=== PATIENT | female | born 1955 | race Caucasian/White ===

== ENCOUNTER 2020-05-15 08:00 | Day surgery (SDC) | payer MEDICARE, BC ==
[~2020-05-15 08:00] MED LIST: Lactated Ringers 1,000 ML IV SCH; Sodium Chloride 0.9% 10 ML SDV IV PRN; Sodium Chloride 0.9% 10 ML Syringe FLUSH PRN; Sodium Chloride 0.9% 2.5 ML Syringe FLUSH PRN; ceFAZolin 1 GM Vial IV ONE
[2020-05-15] MEDS ORDERED: Ondansetron 4 MG/2 ML SDV ONE (08:37)
[2020-05-15] MEDS ORDERED: Rocuronium Bromide 50 MG/5 ML Syringe ONE (08:37)
[2020-05-15] MEDS ORDERED: Midazolam 1 MG/ML 2 ML SDV ONE (08:37)
[2020-05-15] MEDS ORDERED: fentaNYL 100 MCG/2 ML SDV ONE (08:37)
[2020-05-15] MEDS ORDERED: Propofol 200 MG/20 ML SDV ONE (08:37)
[2020-05-15] MEDS ORDERED: ePHEDrine 50 MG/ML SDV ONE (08:40)
--- NOTE | 2020-05-15 09:10 | PCM.PREANE ---
Preanesthetic Assessment - Anesthesia/Transfusion/Family Hx Anesthesia History: Prior Anesthesia Without Reaction Family History of Anesthesia Reaction: No Transfusion History: No Prior Transfusion(s) Intubation History: Unknown - Review of Systems General: No Symptoms Pulmonary: No Symptoms Cardiovascular: No Symptoms Gastrointestinal: No Symptoms Neurological: No Symptoms Other: Reports: None - Physical Assessment Vital Signs: Last Vital Signs Temp 36.7 C 05/15/20 08:08 Pulse 92 05/15/20 08:08 Resp 16 05/15/20 08:08 BP 149/87 H 05/15/20 08:08 Pulse Ox 100 05/15/20 08:08 Height: 5 ft 4 in Weight: 56.699 kg ASA Class: 2 Mental Status: Alert & Oriented x3 Airway Class: Mallampati = 1 Dentition: Reports: Normal Dentition Thyro-Mental Finger Breadths: 3 Mouth Opening Finger Breadths: 3 ROM/Head Extension: Full Lungs: Clear to Auscultation, Normal Respiratory Effort Cardiovascular: Regular Rate, Regular Rhythm - Lab Values: Laboratory Last Values SARS-CoV-2 (PCR) NOT DETECTED (NOT DETECT) 05/12/20 11:24 - Allergies Allergies/Adverse Reactions: Allergies Allergy/AdvReac Type Severity Reaction Status Date / Time Sulfa (Sulfonamide Allergy Rash Verified 10/23/15 10:03 Antibiotics) - Blood Blood Available: No - Anesthesia Plan Pre-Op Medication Ordered: None - Acknowledgements Anesthesia Type Planned: General Anesthesia Pt an Appropriate Candidate for the Planned Anesthesia: Yes Alternatives and Risks of Anesthesia Discussed w Pt/Guardian: Yes Pt/Guardian Understands and Agrees with Anesthesia Plan: Yes PreAnesthesia Questionnaire HEENT History: Reports: Impaired Vision Other HEENT History: wears glasses Cardiovascular History: Reports: None Respiratory History: Reports: Other (See Below) (lung nodule found accidently on CT scan a month ago- looks benign) Gastrointestinal History: Reports: None Genitourinary History: Reports: Renal Calculus ICE [employer] V[employer] V[employer]OR History: Reports: None Musculoskeletal History: Reports: Other (See Below) Other Musculoskeletal History: Osteopenia Neurological History: Reports: Other (See Below) Other Neuro History: has motion sickness Psychiatric History: Reports: None Endocrine/Metabolic History: Reports: None Hematologic History: Reports: None Immunologic History: Reports: None Oncologic (Cancer) History: Reports: None Dermatologic History: Reports: None - Infectious Disease History Infectious Disease History: Reports: Chicken Pox, Measles, Mumps Other Infectious Disease History: when a child - Past Surgical History Head Surgeries/Procedures: Reports: None HEENT Surgical History: Reports: Tonsillectomy Cardiovascular Surgical History: Reports: None Respiratory Surgical History: Reports: None GI Surgical History: Reports: Colonoscopy Female Surgical History: Reports: None Endocrine Surgical History: Reports: None Neurological Surgical History: Reports: None Musculoskeletal Surgical History: Reports: None Oncologic Surgical History: Reports: None Dermatological Surgical History: Reports: None - SUBSTANCE USE Tobacco Use Status *Q: Never Tobacco User - HOME MEDS Home Medications: Home Meds Sertraline HCl 1 tab PO DAILY 10/23/15 [History] Calcium Carb, Citrate/Vit D3 [Calcium + D3 ER Tablet] 2 tab PO BEDTIME 05/09/20 [History] - CURRENT (IN HOUSE) MEDS Current Meds: Current Medications Lactated Ringer's (Ringers, Lactated) 1,000 mls @ 100 mls/hr IV ASDIRECTED LANDY Last Admin: 05/15/20 08:20 Dose: 100 mls/hr Documented by: Sodium Chloride (Saline Flush) 10 ml FLUSH ASDIRECTED PRN PRN Reason: Keep Vein Open Sodium Chloride (Saline Flush) 2.5 ml FLUSH ASDIRECTED PRN PRN Reason: Keep Vein Open Sodium Chloride (Normal Saline) 10 ml IV ASDIRECTED PRN PRN Reason: IV Use Discontinued Medications Cefazolin Sodium (Ancef) 1 gm IV ONCALL ONE Stop: 05/15/20 00:06 Ephedrine Sulfate (Ephedrine Sulfate) Confirm Administered Dose 50 mg .ROUTE .STK-MED ONE Stop: 05/15/20 08:41 Fentanyl (Sublimaze) Confirm Administered Dose 100 mcg .ROUTE .STK-MED ONE Stop: 05/15/20 08:38 Lidocaine HCl (Xylocaine-Mpf 1%) Confirm Administered Dose 5 ml .ROUTE .STK-MED ONE Stop: 05/15/20 08:38 Midazolam HCl (Versed 1 Mg/Ml) Confirm Administered Dose 2 mg .ROUTE .STK-MED ONE Stop: 05/15/20 08:38 Ondansetron HCl (Zofran) Confirm Administered Dose 4 mg .ROUTE .STK-MED ONE Stop: 05/15/20 08:38 Propofol (Diprivan 20 Ml) Confirm Administered Dose 200 mg .ROUTE .STK-MED ONE Stop: 05/15/20 08:38 Rocuronium [place] (Rocuronium [place]) Confirm Administered Dose 50 mg .ROUTE .STK-MED ONE Stop: 05/15/20 08:38
[2020-05-15] MEDS ORDERED: Iopamidol 408 MG/ML 20 ML SDV ONE (09:39)
[2020-05-15] MEDS ORDERED: Glycopyrrolate 0.2 MG/ML SDV ONE (10:36)
--- NOTE | 2020-05-15 11:19 | PCM.POSTAN ---
POST ANESTHESIA ASSESSMENT - MENTAL STATUS Mental Status: Alert, Oriented - VITAL SIGNS Vital Signs: Last Vital Signs Temp 36.4 C 05/15/20 10:56 Pulse 57 L 05/15/20 11:12 Resp 9 L 05/15/20 11:12 BP 128/70 05/15/20 11:12 Pulse Ox 96 05/15/20 11:12 - RESPIRATORY Respiratory Status: Respiratory Rate WNL, Airway Patent, O2 Saturation Stable - CARDIOVASCULAR CV Status: Pulse Rate WNL, Blood Pressure Stable - GASTROINTESTINAL GI Status: No Symptoms - POST OP HYDRATION Hydration Status: Adequate & Stable - OBSERVATIONS Free Text/Narrative:: The patient tolerated the procedure well. There were no apparent anesthetic complications at this time. Discharge from phase one per criteria.
--- NOTE | 2020-05-15 11:45 | PCM48HPAN ---
Post Anesthesia Note - EVALUATION WITHIN 48HRS OF ANESTHETIC Vital Signs in Normal Range: Yes Patient Participated in Evaluation: Yes Respiratory Function Stable: Yes Airway Patent: Yes Cardiovascular Function Stable: Yes Hydration Status Stable: Yes Pain Control Satisfactory: Yes Nausea and Vomiting Control Satisfactory: Yes Mental Status Recovered: Yes Vital Signs: Last Vital Signs Temp 36 C L 05/15/20 11:16 Pulse 73 05/15/20 11:16 Resp 14 05/15/20 11:16 BP 109/66 05/15/20 11:16 Pulse Ox 96 05/15/20 11:16 - COMMENTS/OBSERVATIONS Free Text/Narrative:: No anesthesia problems
[2020-05-15 11:54] VITALS: BP 102/65; PULSE 59
--- NOTE | 2020-05-15 12:18 | OR ---
SURGEON: Roman Koch M.D. DATE OF PROCEDURE: 05/15/2020 PREOPERATIVE DIAGNOSIS: A 7 mm left renal pelvis stone, lower pole calyceal stone. POSTOPERATIVE DIAGNOSIS: A 7 mm left renal pelvis stone, lower pole calyceal stone. OPERATION: Extracorporeal shock wave lithotripsy. DESCRIPTION OF PROCEDURE: The patient was given general anesthesia. She was on the lithotripsy table. The position of the patient was adjusted, so the stone could be treated and eventually received a total of 2500 shocks. At the end of the treatment, the shadow of the stone completely disappeared. With that done, the procedure was terminated. The patient was moved back to recovery room in good condition. PLAN: She comes back as needed. HEVER / DAQUAN /[id number]
[2020-05-16] MEDS ORDERED: Sertraline 50 MG Tab PO SCH (09:00)
== END 2020-05-15 11:55 | disposition home or self-care (01) ==
LOC: MW.SDS 08:00
PROVIDERS: ATTEND Urology
DX: N20.0 Calculus of kidney (principal); K59.00 Constipation, unspecified; Z88.2 Allergy status to sulfonamides; Z79.899 Other long term (current) drug therapy; Z98.890 Other specified postprocedural states; Z01.812 Encounter for preprocedural laboratory examination; Z20.828 Contact with and (suspected) exposure to other viral communicable diseases
CPT/HCPCS: 50590; J0690; J2001; J2250; J2405; J2704; J3010; J3490; J7120; U0002; 00873; Q9966